=== PATIENT | male | born 1995 | race Caucasian/White ===

== ENCOUNTER 2017-12-03 13:55 | Emergency (ER) | payer MEDICAID ==
[~2017-12-03] VITALS: Ht 185.4 cm; Wt 99.8 kg
[~2017-12-03 13:55] MED LIST: Prednisone10 MG PO
== END 2017-12-03 15:00 | disposition home or self-care (01) ==
LOC: ER 13:55
DX: S61.411A Laceration without foreign body of right hand, initial encounter (principal); W26.8XXA Contact with other sharp object(s), not elsewhere classified, initial encounter
CPT/HCPCS: 99282

== ENCOUNTER 2019-08-15 04:58 | Emergency (ER) | payer SELFPAY ==
[~2019-08-15] VITALS: Ht 188 cm; Wt 90.7 kg
[2019-08-15] MEDS ORDERED: PRED10 PO (05:33)
== END 2019-08-15 05:46 | disposition home or self-care (01) ==
LOC: ER 04:58
DX: L23.7 Allergic contact dermatitis due to plants, except food (principal); F17.200 Nicotine dependence, unspecified, uncomplicated
CPT/HCPCS: 99282

== ENCOUNTER 2023-10-16 08:44 | Emergency (ER) | payer SELFPAY ==
[~2023-10-16] VITALS: Ht 190.5 cm; Wt 136.1 kg
[~2023-10-16 08:44] MED LIST changes: +PRED10 PO
[2023-10-16] MEDS ORDERED: Ketorolac Tromethamine 30mg Vial IV ONE (08:55)
[2023-10-16 09:17] LABS: BASOPHILS ABSOLUTE AUTO 0.21 K/mm3 (0.00-0.23); BASOPHILS PERCENT AUTO 1 % (0-2); EOSINOPHILS ABSOLUTE AUTO 0.27 K/mm3 (0.00-0.68); EOSINOPHILS PERCENT AUTO 1 % (0-6); Hematocrit 50.1 % (37.0-53.0); Hemoglobin 16.7 g/dL (13.5-17.5); IMMATURE GRAN ABSOLUTE AUTO 0.69 K/mm3 (0.00-0.10); IMMATURE GRAN PERCENT AUTO 4 % (0-1); LYMPHOCYTES ABSOLUTE AUTO 7.12 K/mm3 (0.84-5.20); LYMPHOCYTES PERCENT AUTO 36 % (21-46); MONOCYTES ABSOLUTE AUTO 1.55 K/mm3 (0.16-1.47); MONOCYTES PERCENT AUTO 8 % (4-13); Mean Corpuscular HGB 29.4 pg (26.0-34.0); Mean Corpuscular HGB Conc 33.3 g/dL (31.5-36.5); Mean Corpuscular Volume 88 fL (80-100); Mean Platelet Volume 10.8 fL (9.1-12.4); NEUTROPHILS ABSOLUTE AUTO 9.98 K/mm3 (1.96-9.15); NEUTROPHILS PERCENT AUTO 50 % (41-73); Platelet Count 445 K/mm3 (150-400); RDW Coefficient Variation 12.8 % (11.7-14.2); RDW Standard Deviation 41.7 fL (35.1-46.3); Red Blood Cell Count 5.68 M/mm3 (4.30-5.90); White Blood Cell Count 19.82 K/mm3 (4.00-11.30)
[2023-10-16 09:33] LABS: Albumin, Blood 4.2 g/dL (3.4-5.0); Albumin/Globulin Ratio 1.1 (0.8-1.8); Bilirubin, Total 0.6 mg/dL (0.1-1.0); Bun/Creatinine Ratio 10.9 (12.0-20.0); Calcium, Blood 9.3 mg/dL (8.5-10.1); Creatinine, Blood 1.1 mg/dL (0.60-1.20); Globulin, Blood 3.7 g/dL (2.2-4.0); Potassium, Blood 3.2 mmol/L (3.5-5.5); Total Protein, Blood 7.9 g/dL (6.4-8.2)
[2023-10-16 09:35] LABS: BASOPHILS PERCENT MAN 0 % (0-2); EOSINOPHILS PERCENT MAN 0 % (0-6); LYMPHOCYTES % ATYPICAL MANUAL 2 % (0-0); LYMPHOCYTES ABSOLUTE MAN 8.91 K/mm3 (0.84-5.20); LYMPHOCYTES PERCENT MAN 43 % (21-46); MONOCYTES ABSOLUTE MAN 1.38 K/mm3 (0.16-1.47); MONOCYTES PERCENT MAN 7 % (4-13); NEUTROPHILS ABSOLUTE MAN 9.51 K/mm3 (1.96-9.15); SEG NEUTROPHILS PERCENT MAN 48 % (41-73); TOTAL CELLS COUNTED 100
[2023-10-16] MEDS ORDERED: Propofol 10mg/ml 20 ml Vial (Procedural) IV SCH (09:45)
[2023-10-16] MEDS ORDERED: NS 1,000 ML IV ONE (09:56)
[2023-10-16] MEDS ORDERED: NS 1,000 ML IV SCH (10:00)
[2023-10-16] MEDS ORDERED: levETIRAcetam 1,500 MG in NS 100 ML IV ONE (10:30)
[2023-10-16] MEDS ORDERED: IBUP800 PO (11:29)
[2023-10-16] MEDS ORDERED: LEVE500 PO (11:29)
[2023-10-16] MEDS ORDERED: HYDROCODONE-AC1 EA10 PO (11:29)
[2023-10-16 11:50] VITALS: BP 162/96
== END 2023-10-16 12:48 | disposition home or self-care (01) ==
LOC: ER 08:44
PROVIDERS: Emergency Medicine
DX: R56.9 Unspecified convulsions (principal); S42.292A Other displaced fracture of upper end of left humerus, initial encounter for closed fracture; S42.291A Other displaced fracture of upper end of right humerus, initial encounter for closed fracture; W18.30XA Fall on same level, unspecified, initial encounter; F17.210 Nicotine dependence, cigarettes, uncomplicated
CPT/HCPCS: 23665; 70450; 73020; 73030; 80053; 85025; 93005; 93010; 96374-59; 96375-59; 99152; 99285-25; J1885; J1953; J2704; J7030